=== PATIENT | male | born 1975 | race Caucasian/White ===

== ENCOUNTER 2022-03-10 08:03 | Outpatient (CLI) | payer OTHER, SELFPAY ==
[2022-03-10 11:12] LABS: Chloride* 104 mmol/L (96-114); Sodium* 142 mmol/L (135-149)
[2022-03-10 11:15] LABS: Blood Urea Nitrogen* 20 mg/dL (5-24); Carbon Dioxide* 26 mmol/L (20-32); Cholesterol* 228 mg/dL (90-199); Estimated Glomerular Filt Rate 94 ml/min
[2022-03-10 11:16] LABS: Calcium* 9.7 mg/dL (8.4-10.6); HDL Cholesterol* 40 mg/dL (>=40); LDL Cholesterol Calculated 158 mg/dL (<100); Triglycerides* 151 mg/dL (40-149)
[2022-03-10 11:32] LABS: Glucose* 114 mg/dL (60-115)
== END 2022-03-10 08:04 | disposition home or self-care (01) ==
LOC: NFLDREF 08:03
PROVIDERS: PCP Family Medicine; Visit Provider Family Medicine
DX: R03.0 Elevated blood-pressure reading, without diagnosis of hypertension (principal); Z13.6 Encounter for screening for cardiovascular disorders
CPT/HCPCS: 80048; 80061

== ENCOUNTER 2023-10-23 08:04 | Outpatient (CLI) | payer OTHER, SELFPAY | END 2023-10-23 08:05 | disposition home or self-care (01) | LOC: NFLDREF 10-25 03:16 | PROVIDERS: PCP Family Medicine; Referring Provider Family Medicine; Visit Provider Family Medicine | DX: Z00.00 Encounter for general adult medical examination without abnormal findings (principal); E78.5 Hyperlipidemia, unspecified; Z13.1 Encounter for screening for diabetes mellitus; R73.03 Prediabetes | CPT/HCPCS: 80061; 82947 ==

== ENCOUNTER 2025-02-06 07:55 | Outpatient (CLI) | payer OTHER, SELFPAY | END 2025-02-06 07:56 | disposition home or self-care (01) | LOC: NFLDREF 02-08 14:42 | PROVIDERS: PCP Family Medicine; Referring Provider Family Medicine; Visit Provider Family Medicine | DX: E78.5 Hyperlipidemia, unspecified (principal); R73.03 Prediabetes | CPT/HCPCS: 80053; 80061 ==